=== PATIENT | female | born 2000 | race Caucasian/White ===

== ENCOUNTER 2020-11-24 12:21 | Emergency (ER) | payer SELFPAY ==
[~2020-11-24] VITALS: Ht 167.6 cm; Wt 68.0 kg
[2020-11-24] MEDS: ACETAMINOPHEN 325 MG TAB PO ONE (13:19)
[2020-11-24] MEDS ORDERED: ONDANSETRON ODT4 MG PO (15:09)
[2020-11-24 15:29] VITALS: BP 122/65
== END 2020-11-24 15:30 | disposition home or self-care (01) ==
LOC: ER 13:15
DX: R50.9 Fever, unspecified (principal); R05 Cough; J06.9 Acute upper respiratory infection, unspecified; Z20.822 Contact with and (suspected) exposure to COVID-19
CPT/HCPCS: 83518; 87070; 93005; 99283; U0002